=== PATIENT | female | born 1955 | race Caucasian/White ===

== ENCOUNTER 2024-02-27 06:58 | Emergency (ER) | payer MEDICARE ==
[~2024-02-27] VITALS: Ht 162.6 cm; Wt 86.2 kg
[2024-02-27 07:14] VITALS: PULSE 73; RESP 18; TEMP 98.4; O2SAT 98
[2024-02-27] MEDS ORDERED: TRIAMCINOLONE A15 G1 TOP (07:32)
[2024-02-27] MEDS: DEXAMETHASONE SOD PHOS INJ 4 MG/ML SDV IV ONE (07:53)
== END 2024-02-27 08:00 | disposition home or self-care (01) ==
LOC: FSED 07:13
DX: R21 Rash and other nonspecific skin eruption (principal); F32.A Depression, unspecified; F17.210 Nicotine dependence, cigarettes, uncomplicated
CPT/HCPCS: 99283; J1100